=== PATIENT | male | born 1965 | race Caucasian/White ===

== ENCOUNTER 2023-05-29 16:15 | Outpatient (CLI) | payer BC, SELFPAY ==
--- NOTE | ~2023-05-29 | XR_ITS ---
EXAMINATION: XR wrist RT min 3V DATE: 05/29/2023 17:08 INDICATION: Right wrist pain. TECHNIQUE: 4 views of right wrist were obtained. COMPARISON: None. FINDINGS: Bone alignment is normal. No acute fracture. There is an old healed fracture of diaphysis o f fifth metacarpal. There is mild osteoarthritis of triscaphe joint. There is severe osteoarthritis o f third metacarpophalangeal joint and mild osteoarthritis of second metacarpophalangeal joint. IMPRESSION: 1. Polyarticular osteoarthritis. Reviewed, dictated and finalized at location E.
--- NOTE | ~2023-05-29 | XR_ITS ---
EXAMINATION: XR finger 1st RT min 2V DATE: 05/29/2023 17:08 INDICATION: Right thumb pain. TECHNIQUE: 2 views of right thumb were obtained. COMPARISON: None. FINDINGS: Bone alignment is normal. No fracture. There is mild osteoarthritis of first carpometacarpa l joint. IMPRESSION: 1. Mild osteoarthritis of first carpometacarpal joint. Reviewed, dictated and finalized at location E.
== END 2023-05-29 16:16 ==
PROVIDERS: PCP Physician Assistant; Visit Provider Physician Assistant
DX: M25.531 Pain in right wrist (principal); M19.031 Primary osteoarthritis, right wrist
CPT/HCPCS: 73110; 73140